=== PATIENT | female | born 1965 | race Caucasian/White ===

== ENCOUNTER → 2020-11-28 20:03 | Outpatient (CLI) | payer OTHER ==
[2016-06-30 15:48] VITALS: BMI 20.2
[~2020-11-28 20:03] MED LIST: BACTROBAN NASAL1 GM NASAL; CLONAZEPAM2 MG/TAB PO; COLACE100 MG PO; DEMEROL50 MG PO; ELIQUIS2.5 MG PO; FERROUS SULFAT325 MG PO; HYDROCODONE-APA1 TAB PO; OXYCONTIN10 MG PO; PERCOCET 10/3251 TA1 PO; ROXICODONE15 MG PO; VITAMIN B-1000 MCG/M IM
== END | disposition home or self-care (01) ==
LOC: D.MAMMO 15:15
PROVIDERS: ATTEND Emergency Medicine
DX: Z12.31 Encounter for screening mammogram for malignant neoplasm of breast (principal)